=== PATIENT | female | born 1985 | race Caucasian/White ===

== ENCOUNTER → 2019-09-09 09:44 | Outpatient (BNVA) | payer MEDICAID, SELFPAY | PROVIDERS: Family Provider Internal Medicine; PCP Internal Medicine; Visit Provider Social Worker Clinical | DX: F20.9 Schizophrenia, unspecified (principal); F43.12 Post-traumatic stress disorder, chronic; F41.1 Generalized anxiety disorder | CPT/HCPCS: 90834 ==

== ENCOUNTER → 2019-09-30 08:42 | Outpatient (BNVA) | payer MEDICAID, SELFPAY | PROVIDERS: Family Provider Internal Medicine; PCP Internal Medicine; Visit Provider Social Worker Clinical | DX: F20.9 Schizophrenia, unspecified (principal); F43.12 Post-traumatic stress disorder, chronic; F41.1 Generalized anxiety disorder | CPT/HCPCS: 90834 ==

== ENCOUNTER → 2019-10-05 15:13 | Outpatient (BNVA) | payer MEDICAID, SELFPAY | PROVIDERS: Family Provider Internal Medicine; PCP Internal Medicine; Visit Provider Social Worker Clinical | DX: F20.9 Schizophrenia, unspecified (principal); F43.12 Post-traumatic stress disorder, chronic; F41.1 Generalized anxiety disorder | CPT/HCPCS: 90834 ==

== ENCOUNTER 2019-10-13 17:39 | Inpatient (IN) | payer MEDICAID, SELFPAY ==
[2019-10-13 17:41] VITALS: BP 127/88; PULSE 92; RESP 18; TEMP 36.6; O2SAT 97; BMI 36.6
--- NOTE | 2019-10-13 17:48 | ED_ITS ---
Entered by Desean Rodriges, acting as scribe for Alicia Babin MD Oct 13, 2019 17:39 HPI - Psych General: Chief Complaint: Psychiatric Symptoms Stated Complaint: SI Time Seen by Provider: 10/13/19 17:54 History of Present Illness: HPI Narrative: 34 yo female presents with suicidal ideation. Pt states that she doesn't think that her medications are right. Pt states that she is shaking. Pt states that she has a history of hurting herself. MD complaint: suicidal ideation Duration: constant History of same: Yes Relieving factors: none Exacerbating factors: none Associated psychiatric symptoms: depression and suicidal ideation Associated symptoms: Reports depression Review of Systems Const: Denies: fever, chills, body aches or change in appetite Eyes: Denies: blurry vision or eye discomfort ENMT: Denies: throat pain or dental pain Card: Denies: chest pain Resp: Denies: shortness of breath GI: Denies: abdominal pain, nausea, vomiting or diarrhea : Denies: painful urination Musc: Denies: neck pain or back pain Skin/Breast: Denies: rash Neuro: Denies: headache Psych: Reports: depression Eduar/Lymph: Denies: easy bruising All/Imm: Denies: hives PFSH ED PFSH: Statuses (acute, chronic, etc) shown below reflect problem list status as previously entered and may not be historically accurate Medical History (Updated 10/13/19 @ 17:52 by Desean Rodriges) Schizophrenia Surgical History (Updated 09/29/19 @ 12:06 by Cyrus Jordan LPN) Hx of tonsillectomy Social History (Updated 10/07/19 @ 11:51 by Gloria Cordova LPN) Smoking and tobacco status: current every day smoker Alcohol intake: never Female Reproductive History: Date of last menstrual period: 09/29/19 Physical Exam Const: COMMON NORMALS: no apparent distress, oriented x3 and healthy appearing HENMT: COMMON NORMALS: normocephalic and head/scalp atraumatic HEAD & SCALP: normocephalic and atraumatic Eye: COMMON NORMALS: PERRL and EOMs intact bilaterally PUPIL: Yes PERRL Neck/C-Spine: COMMON NORMALS: full ROM and supple Chest: COMMONS NORMALS: inspection of chest normal and palpation of chest normal Resp: COMMON NORMALS: normal respiratory effort, no retractions, no use of accessory muscles and clear to auscultation bilaterally AUSCULTATION: clear to auscultation bilaterally Cardio: COMMON NORMALS: regular rate, regular rhythm and no murmurs RATE: regular rate RHYTHM: regular rhythm GI: COMMON NORMALS: normal to inspection, nondistended, normoactive bowel sounds, soft to palpation, non-tender and no masses PALPATION: Yes soft Extremity: COMMON NORMALS: normal to inspection and full ROM Neuro: COMMON NORMALS: oriented x3, moves all extremities and no focal motor deficits Psych: COMMON NORMALS: mental status grossly normal, thought process normal and cooperative THOUGHT PROCESS: normal thought process Skin: COMMON NORMALS: no rashes or lesions noted and no wounds GENERAL SKIN EXAM: no rashes or lesions noted MDM - Psych MDM Narrative: Medical decision making narrative: Patient presents here with suicidal ideations along with depression. Patient placed under 96-hour hold and medically cleared and will admit to the psychiatric unit. Patient has been stable while here. Lab Data: Labs: Lab Results 10/13/19 10/13/19 Range/Units 18:17 18:17 WBC 13.6 H (4.0-10.0) 10^3/ uL RBC 4.89 (4.1-5.3) 10^6/u L Hgb 14.1 (11.5-15.3) g/dL Hct 42.8 (37.0-47.0) % MCV 87.5 (81-99) fL MCH 28.8 (28.0-34.0) pg MCHC 32.9 (30.0-36.0) g/dL RDW 13.5 (12.1-15.1) % Plt Count 286 (130-400) 10^3/c mm MPV 10.7 H (7.4-10.4) fL Neut % (Auto) 64.4 % Lymph % (Auto) 28.7 % Camp % (Auto) 5.3 % Eos % (Auto) 1.0 % Baso % (Auto) 0.2 % Neut # (Auto) 8.8 H (1.8-7.7) 10^3/u L Lymph # (Auto) 3.9 (0.8-4.8) 10^3/u L Camp # (Auto) 0.7 (0.2-0.9) 10^3/u L Eos # (Auto) 0.1 (0.0-0.8) 10^3/u L Baso # (Auto) 0.0 (0.0-0.1) 10^3/u L Nucleated RBC % (a uto) 0 % Nucleated RBCs # 0.0 /100WBC Sodium 138 (136-145) mmol/L Potassium 3.4 L (3.5-5.1) mmol/L Chloride 105 (98-107) mmol/L Carbon Dioxide 20 L (22-29) mmol/L Anion Gap 16.4 (5-19) BUN 10 (6-20) mg/dL Creatinine 0.8 (0.5-0.9) mg/dL GFR Calculation 83.1 L (90-130) mL/min Glucose 118 H (65-115) mg/dL Calcium 9.9 (8.5-10.5) mg/dL Total Bilirubin 0.4 (0.15-1.2) mg/dL AST 16 (0-32) U/L ALT 17 (0-33) U/L Alkaline Phosphata se 168 H (35-105) IU/L Total Protein 7.2 (6.6-8.7) g/dL Albumin 4.5 (3.5-5.2) g/dL Globulin 2.7 (1.3-4.6) g/dL TSH 0.28 (0.27-4.20) uIU/ mL Salicylates 0.4 L (3-10) mg/dL Acetaminophen < 5.0 L (10-30) ug/mL Discharge Plan Discharge Prescriptions: No Action benztropine 0.5 mg tablet 0.5 mg PO BID RF: 0 clonazepam [Klonopin] 0.5 mg tablet 0.25 mg PO BID RF: 0 haloperidol 10 mg tablet 10 mg PO BID RF: 0 Linzess 145 mcg capsule 145 mcg PO QAM RF: 0 losartan 25 mg tablet 25 mg PO QDAY RF: 0 lovastatin 10 mg tablet 10 mg PO .HS RF: 0 omeprazole 20 mg capsule,delayed release(DR/EC) 20 mg PO BID RF: 0 zolpidem [Ambien] 10 mg tablet 10 mg PO ONCE RF: 0 mirtazapine [Remeron] 15 mg tablet 15 mg PO .HS Qty: 30 RF: 0 fluoxetine [Prozac] 40 mg capsule 40 mg PO QDAY Qty: 30 RF: 0 Coding Level of Care Code ED Public Safety Officer for Chg Fwd Exam Problem Focused The documentation recorded by the Antelmo cosby Kialy, accurately reflects the service I personally performed and the decisions made by , Alicia Babin MD Oct 13, 2019 17:39
[2019-10-13 18:07] VITALS: O2SAT 97
[2019-10-13 18:31] LABS: Basophils % 0.2 %; Eosinophils # 0.1 10^3/uL (0.0-0.8); Hematocrit 42.8 % (37.0-47.0); Hemoglobin 14.1 g/dL (11.5-15.3); Lymphocytes # 3.9 10^3/uL (0.8-4.8); Lymphocytes % 28.7 %; Mean Corpuscular HGB Conc 32.9 g/dL (30.0-36.0); Mean Corpuscular Hemoglobin 28.8 pg (28.0-34.0); Mean Corpuscular Volume 87.5 fL (81-99); Mean Platelet Volume 10.7 fL (7.4-10.4); Monocytes # 0.7 10^3/uL (0.2-0.9); Monocytes % 5.3 %; Neutrophils # 8.8 10^3/uL (1.8-7.7); Neutrophils % 64.4 %; Nucleated Red Blood Cells % 0 %; Platelet Count 286 10^3/cmm (130-400); Red Blood Count 4.89 10^6/uL (4.1-5.3); Red Cell Distribution Width 13.5 % (12.1-15.1); White Blood Count 13.6 10^3/uL (4.0-10.0)
[2019-10-13 18:59] LABS: Acetaminophen < 5.0 ug/mL (10-30); Alanine Aminotransferase 17 U/L (0-33); Albumin Level 4.5 g/dL (3.5-5.2); Alkaline Phosphatase 168 IU/L (35-105); Anion Gap 16.4 (5-19); Aspartate Amino Transferase 16 U/L (0-32); Blood Urea Nitrogen 10 mg/dL (6-20); Calcium 9.9 mg/dL (8.5-10.5); Carbon Dioxide 20 mmol/L (22-29); Chloride 105 mmol/L (98-107); Globulin 2.7 g/dL (1.3-4.6); Glomerular Filtration Rate 83.1 mL/min (90-130); Glucose 118 mg/dL (65-115); Potassium 3.4 mmol/L (3.5-5.1); Salicylate 0.4 mg/dL (3-10); Sodium 138 mmol/L (136-145); Thyroid Stimulating Hormone 0.28 uIU/mL (0.27-4.20); Total Bilirubin 0.4 mg/dL (0.15-1.2); Total Protein 7.2 g/dL (6.6-8.7)
[2019-10-13 19:19] LABS: Add Urine Microscopic? NO
[2019-10-13 19:27] LABS: Bilirubin Urine Neg (NEGATIVE); Blood Urine Neg (Negative); Glucose Urine UA Norm (Normal); HCG Qualitative Urine. Negative (Negative); Ketones Urine Negative (Negative); Leukocyte Esterase Urine Negative (Negative); Nitrate Urine Negative (Negative); Protein Urine Neg (Negative); Specific Gravity, Urine 1.005 (1.005-1.030); Urine Appearance Clear (CLEAR); Urine Color Yellow (Yellow); Urobilinogen Urine Norm (Negative); pH Urine 6 (5-7)
[2019-10-13 19:38] LABS: Alcohol Level < 10 mg/dL (0-10)
[2019-10-13 19:40] LABS: Amphetamines Screen Urine Negative (Negative); Barbiturates Screen Urine Negative (Negative); Benzodiazepines Screen Urine Negative (Negative); Cocaine Screen Urine Negative (Negative); Opiate Screen Urine Negative (Negative); PCP Screen Urine Negative (Negative); THC Screen Urine Negative (Negative)
[2019-10-13 20:30] VITALS: BP 143/89; PULSE 74; RESP 18; O2SAT 98
[2019-10-13 22:00] VITALS: BP 128/84; PULSE 76; RESP 21; TEMP 36.8; O2SAT 99
[2019-10-13] MEDS: haloperidol 5 mg Tablet 10 MG PO (22:53)
[2019-10-13] MEDS: mirtazapine 15 mg Tablet PO (22:54)
[2019-10-13] MEDS: atorvastatin 40 mg Tablet 20 MG PO (22:54)
[2019-10-14 06:00] VITALS: BP 102/68; PULSE 61; RESP 18; TEMP 36.8; O2SAT 95
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
[2019-10-14] MEDS: benztropine 1 mg Tablet 0.5 MG PO ×2 (08:32→17:36)
[2019-10-14] MEDS: CLONazepam 0.5 mg Tablet 0.25 MG PO ×2 (08:33→17:37)
[2019-10-14] MEDS: fluoxetine 20 mg Capsule 40 MG PO (08:34)
[2019-10-14] MEDS: haloperidol 5 mg Tablet 10 MG PO ×2 (08:34→21:11)
[2019-10-14] MEDS: losartan 50 mg Tablet 25 MG PO (08:35)
[2019-10-14] MEDS: pantoprazole DR 40 mg Tablet PO ×2 (08:35→17:37)
[2019-10-14] MEDS: acetaminophen 325 mg Tablet 650 MG PO (09:13)
[2019-10-14 13:06] VITALS: BP 96/62; PULSE 59; RESP 18; TEMP 36.7; O2SAT 96
[2019-10-14] MEDS: atorvastatin 40 mg Tablet 20 MG PO (21:11)
[2019-10-14] MEDS: mirtazapine 15 mg Tablet PO (21:12)
[2019-10-14 21:25] VITALS: BP 122/85; PULSE 63; RESP 17; TEMP 36.8; O2SAT 95
[2019-10-15 06:00] VITALS: BP 109/71; PULSE 54; RESP 18; TEMP 36.7; O2SAT 97
[2019-10-15] MEDS: fluoxetine 20 mg Capsule 40 MG PO (09:05)
[2019-10-15] MEDS: CLONazepam 0.5 mg Tablet 0.25 MG PO ×2 (09:05→17:30)
[2019-10-15] MEDS: pantoprazole DR 40 mg Tablet PO ×2 (09:05→17:29)
[2019-10-15] MEDS: benztropine 1 mg Tablet 0.5 MG PO ×2 (09:06→17:29)
[2019-10-15 09:08] VITALS: BP 114/83
[2019-10-15] MEDS: losartan 50 mg Tablet 25 MG PO (09:08)
--- NOTE | 2019-10-15 13:07 | PM.NPN ---
Subjective [facility] Subjective: Interval history: patient reports that she feels much better. She continues to hear a voice-like sounds in the background but is unable to detect with the voices are saying. She does not find distracting or frightening. She slept well after decrease of Haldol yesterday. Mental Status Exam MSE Comments: Mental Status Exam: Appearance: hygiene is good; no gross neurological deficits., gait is unremarkable; AIMS=0 Speech: Speech is of normal rate and rhythm and easily understood. Thought processes: Thought processes are abstract. Judgment is adequate for safety. Associations: intact Psychotic processes: There is no indication of guarding or paranoia. There is no attention to the internal stimuli. Auditory and visual hallucinations are denied. Judgment: Insight is fair. Problem solving skills are adequate for safety. Orientation: The patient is oriented to person, place time and situation. Memory: no deficits noted in immediate, intermediate, or remote spheres. Attention: The patient is alert and interpersonally engaged. Language: Verbalizations are coherent. Fund of knowledge: Fund of knowledge is adequate. Affect/Mood: Affect is consistent with a mildlydepressed mood. she denies suicidal ideation Affective range is appropriate. Psychosis: perception unimpaired except through cognitive distortion; reality testing intact. Cognition: Level of Consciousness: Awake, Alert, Appropriate and Follows Commands Patient Cognition Impaired: No Ability to Follow Directions: Excellent Patient Orientation (long list): Person, Place, Time, Name and Birthday Comprehension Ability: Understands Concepts Hallucination Type: None Delusion Description: Not Present Thought Process: Appropriate Affect: Affect Description: Calm and Flat Behavior: Patient Behavior: Cooperative Speech Pattern: Clear Vitals/I&O/Wt Last Vital Signs Temp 98.0 F 10/15/19 06:00 Pulse 54 L 10/15/19 06:00 Resp 18 10/15/19 06:00 BP 114/83 10/15/19 09:08 Pulse Ox 97 10/15/19 06:00 Weight last 48 hrs Weight 109.316 kg Data [facility] : 10/13/19 18:17 10/13/19 18:17 A&P Additional A&P Information assessment:major depression with psychotic features Due to the psychiatric conditions and treatment listed in the Assessment and Plan - the patient requires continued hospitalization. Will provide a safe and therapeutic environment for patient.. Will continue inpatient treatment to allow for medication adjustment and monitoring. Will continue q15 min safety checks. admission plan:Will continue current medications and monitor for medication side effects. Hospital day #3:Will decrease bedtime Haldol till 5 mg and stop daytime dosage only. Will provide a when necessary dose of 5 mg should auditory hallucinations recur. We will attempt to hold the dosage at this level and if she does well over the next 3 days and discharged to home. Monitor patient's mood, sleep, appetite, and behavior closely. Encourage patient to participate in individual and group therapeutic sessions on the fischer. Estimated length of stay 5 days The expected benefits and potential side effects of patient's psychiatric medications were discussed with the patient. The patient understands and consents to treatment. CRITERIA FOR DISCHARGE: stable on medications and no longer an imminent threat to self or others Involuntary Hold Information 96 Hour Hold: 96 Hour Hold Ending Date: 10/20/19 96 Hour Hold Ending Time: 19:09 Attestations [facility] Medical Necessity Statement*: patient will remain in the hospital for 3 more nights to stabilize her medications. Coding Level of Care Code Acute Group Therapy Counselor for Dragan Emanuel
[2019-10-15 14:00] VITALS: BP 105/75; PULSE 74; RESP 16; TEMP 36.7; O2SAT 98
[2019-10-15 20:07] VITALS: BP 107/78; PULSE 73; RESP 18; TEMP 36.6; O2SAT 97
[2019-10-15] MEDS: blistex lip oint 7 gm Tube 1 APPLIC TOPICAL (20:35)
[2019-10-15] MEDS: haloperidol 5 mg Tablet PO (20:35)
[2019-10-15] MEDS: atorvastatin 40 mg Tablet 20 MG PO (20:35)
[2019-10-15] MEDS: mirtazapine 15 mg Tablet PO (20:35)
[2019-10-16] MEDS: hyDROXYzine 25 mg Capsule 50 MG PO ×2 (00:23→19:01)
--- NOTE | 2019-10-16 00:27 | PC.NURSE ---
PRN VISTARIL PRN VISTARIL 50 MG PO ADMINISTERED FOR PT C/O ANXIETY. WILL CONTINUE TO MONITOR.
[2019-10-16 06:00] VITALS: BP 115/79; PULSE 58; RESP 18; TEMP 36.5; O2SAT 96
[2019-10-16] MEDS: CLONazepam 0.5 mg Tablet 0.25 MG PO ×2 (08:40→17:45)
[2019-10-16] MEDS: benztropine 1 mg Tablet 0.5 MG PO (08:40)
[2019-10-16] MEDS: fluoxetine 20 mg Capsule 40 MG PO (08:41)
[2019-10-16] MEDS: losartan 50 mg Tablet 25 MG PO (08:41)
[2019-10-16] MEDS: pantoprazole DR 40 mg Tablet PO ×2 (08:42→17:45)
[2019-10-16 11:35] VITALS: BP 120/81; PULSE 73
--- NOTE | 2019-10-16 12:17 | PM.NPN ---
Subjective [facility] Subjective: Interval history: pt reports that she is not sleeping well still. Wed iscussed side effects to medicaitons. She was having akathesia at higher doses of haloperidal but not now. No EPS. Mental Status Exam MSE Comments: Pt observed in the common area and interacting with peers in group therapy. Mental Status Exam: Appearance: hygiene is good; no gross neurological deficits., gait is unremarkable; AIMS=0 Speech: Speech is of normal rate and rhythm and easily understood. Thought processes: Thought processes are abstract. Judgment is adequate for safety. Associations: intact Psychotic processes: There is no indication of guarding or paranoia. There is no attention to the internal stimuli. Auditory and visual hallucinations are denied. Judgment: Insight is fair. Problem solving skills are adequate for safety. Orientation: The patient is oriented to person, place time and situation. Memory: no deficits noted in immediate, intermediate, or remote spheres. Attention: The patient is alert and interpersonally engaged. Language: Verbalizations are coherent. Fund of knowledge: Fund of knowledge is adequate. Affect/Mood: Affect is consistent with a euthymic mood. she denies suicidal ideation Affective range is appropriate. Psychosis: perception unimpaired except through cognitive distortion; reality testing intact. Cognition: Patient Appearance: Appropriate Level of Consciousness: Awake, Alert, Appropriate and Follows Commands Patient Cognition Impaired: No Ability to Follow Directions: Excellent Patient Orientation (long list): Person, Place, Time, Name and Birthday Comprehension Ability: Understands Concepts Hallucination Type: None Delusion Description: Not Present Thought Process: Appropriate Affect: Affect Description: Appropriate and Calm Behavior: Patient Behavior: Appropriate Speech Pattern: Appropriate Vitals/I&O/Wt Last Vital Signs Temp 97.7 F 10/16/19 06:00 Pulse 73 10/16/19 11:35 Resp 18 10/16/19 06:00 BP 120/81 10/16/19 11:35 Pulse Ox 96 10/16/19 06:00 Data NPU : 10/13/19 18:17 10/13/19 18:17 A&P Additional A&P Information assessment:major depression with psychotic features Due to the psychiatric conditions and treatment listed in the Assessment and Plan - the patient requires continued hospitalization. Will provide a safe and therapeutic environment for patient.. Will continue inpatient treatment to allow for medication adjustment and monitoring. Will continue q15 min safety checks. admission plan:Will continue current medications and monitor for medication side effects. Hospital day #3:Will decrease bedtime Haldol till 5 mg and stop daytime dosage only. Will provide a when necessary dose of 5 mg should auditory hallucinations recur. We will attempt to hold the dosage at this level and if she does well over the next 3 days and discharged to home. Hospital Day #4: stop cogentin. Stop fluoxetine. Start imipramine 50 mg at bedtime for sleep that will become a prn dose on discharge Monitor patient's mood, sleep, appetite, and behavior closely. Encourage patient to participate in individual and group therapeutic sessions on the fischer. Estimated length of stay 5 days The expected benefits and potential side effects of patient's psychiatric medications were discussed with the patient. The patient understands and consents to treatment. CRITERIA FOR DISCHARGE: stable on medications and no longer an imminent threat to self or others Involuntary Hold Information 96 Hour Hold: 96 Hour Hold Ending Date: 10/20/19 96 Hour Hold Ending Time: 19:09 Attestations [facility] Medical Necessity Statement*: Pt will remain in the hospital 1-2 more nights so that we can assess sleep response. Coding Level of Care Code Acute Vc++ Developer for Dragan Emanuel
[2019-10-16] MEDS: blistex lip oint 7 gm Tube 1 APPLIC TOPICAL (16:16)
[2019-10-16 20:59] VITALS: BP 116/77; PULSE 63; RESP 18; TEMP 36.7; O2SAT 98
[2019-10-16] MEDS: mirtazapine 15 mg Tablet PO (21:12)
[2019-10-16] MEDS: atorvastatin 40 mg Tablet 20 MG PO (21:12)
[2019-10-16] MEDS: haloperidol 5 mg Tablet PO (21:12)
[2019-10-17 06:00] VITALS: BP 135/99; PULSE 77; RESP 20; TEMP 36.7; O2SAT 98
[2019-10-17] MEDS: losartan 50 mg Tablet 25 MG PO (08:52)
[2019-10-17] MEDS: CLONazepam 0.5 mg Tablet 0.25 MG PO (08:53)
[2019-10-17] MEDS: pantoprazole DR 40 mg Tablet PO (08:53)
--- NOTE | 2019-10-17 09:27 | P.DS_ITS ---
Reason for Visit Reason for Visit: Reason For Visit: SI;96 hour hold Hospital Course Discharge Summary Date of Admission: 10/13/2019 Date of Discharge: 10/17/2019 Chief complaint: I think my medications aren't working and I need to change. History of present illness:Blanche Cavanaugh is a 34 year old female who states that yesterday she became irritable at work. She was snapping at everybody and felt like hurting people. I got to work, I began shaking and having bad thoughts. She came to the emergency room at the behest of her family. She is not a reliable informant. She cannot convert the names of medications that she is taking. Her description of her recent history is not supported by information in the medical record. She reports that she engages in no enjoyable activities. There is nothing that she is looking forward to. She has variable sleep. Most recently, her Ambien was replaced with Remeron. However she cannot remember the history of her other medications. She was seeing Dr. Olvera that she said she saw once last month. That is not supported in the medical record. However would explain why her risperidone, which she was taking June was switched to Haldol 10 mg twice a day. She does not associate her increased irritability with the change in the medication. At the time of interview, she was denying suicidal and homicidal ideation. She denied the presence of auditory or visual hallucinations. emergency room note:: HPI Narrative: 34 yo female presents with suicidal ideation. Pt states that she doesn't think that her medications are right. Pt states that she is shaking. Pt states that she has a history of hurting herself. 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 -Has had prior [facility] admissions to the [facility] in 2018 and 2017 in [place], currently not taking any psychiatric medications. Has been going to [facility] for therapy but has been noncompliant with medication management appointment. -Past medications: She reports Prozac caused increased depression, reports Latuda caused increased depression and increased from baseline hallucinations over time, reports Depakote was helpful but caused excessive weight gain, reports Abilify was helpful but has no means of paying for the medication, Haldol, Benadryl. Denies any prior Risperdal trial. 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 She is living with her father and stepmother. -She has lost custody of her 1-year-old who is in a custody of the state/ currently living with her [id number], has 2 other children that live with her family in [place] PAST MEDICAL HISTORY: -Acid reflux. Denies history of seizures. Surgeries: Right ankle fracture r epair, tubal ligation. Social history: Legal history:she was arrested in 2006 for second-degree tampering with an airplane or motorboat Diagnoses: major depression?recurrent, with psychotic features - reolved Adverse Reaction to Psychotropic medication. Assessment:it is confusing how she was changed from Risperdal to Haldol. The increase in dosage is significant and her complaints of being irritable and shaking might be explained by a switch. Akathisia with account for some of her irritability. plan at this time is to decrease her Haldol by half to 10 mg at bedtime only. We'll reassess her treatment for depression pending her response to these changes. :Will continue current medications and monitor for medication side effects. Hospital day #3:Will decrease bedtime Haldol till 5 mg and stop daytime dosage only. Will provide a when necessary dose of 5 mg should auditory hallucinations recur. We will attempt to hold the dosage at this level and if she does well over the next 3 days and discharged to home. Hospital Day #4: stop cogentin. Stop fluoxetine. Start imipramine 50 mg at bedtime for sleep that will become a prn dose on discharge Involuntary Hold Information 96 Hour Hold: 96 Hour Hold Ending Date: 10/20/19 96 Hour Hold Ending Time: 19:09 Mental Status Exam MSE Comments: Discharge Mental Status Exam: Appearance: hygiene is good; no gross neurological deficits., gait is unremarkable; AIMS=0 Speech: Speech is of normal rate and rhythm and easily understood. Thought processes: Thought processes are abstract. Judgment is adequate for safety. Associations: intact Psychotic processes: There is no indication of guarding or paranoia. There is no attention to the internal stimuli. Auditory and visual hallucinations are denied. Judgment: Insight is fair. Problem solving skills are adequate for safety. Orientation: The patient is oriented to person, place time and situation. Memory: no deficits noted in immediate, intermediate, or remote spheres. Attention: The patient is alert and interpersonally engaged. Language: Verbalizations are coherent. Fund of knowledge: Fund of knowledge is adequate. Affect/Mood: Affect is consistent with a euthymic mood. denied suicidal ideation Affective range is appropriate. Psychosis: perception unimpaired except through cognitive distortion; reality testing intact. Discharge Data Vitals: Last Vital Signs Temp 98.0 F 10/17/19 06:00 Pulse 77 10/17/19 06:00 Resp 20 H 10/17/19 06:00 BP 135/99 10/17/19 06:00 Pulse Ox 98 10/17/19 06:00 Discharge Plan Discharge Patient Disposition: Home, Self-Care Condition: Stable Prescriptions: New atorvastatin 40 mg Tablet 20 mg PO BEDTIME Qty: 30 RF: 4 haloperidol 5 mg Tablet 5 mg PO Q4H PRN (Reason: Agitation) Qty: 30 RF: 4 haloperidol 5 mg Tablet 5 mg PO BEDTIME Qty: 30 RF: 4 clonazepam 0.5 mg Tablet 0.25 mg PO BID Qty: 60 RF: 4 benztropine 1 mg Tablet 1 mg PO BID PRN (Reason: Mild Extrapyramidal symptoms) Qty: 60 RF: 4 imipramine HCl 25 mg Tablet 50 mg PO BEDTIME Qty: 30 RF: 4 Continued losartan 25 mg tablet 25 mg PO QDAY Qty: 30 RF: 4 omeprazole 20 mg capsule,delayed release(DR/EC) 20 mg PO BID Qty: 60 RF: 4 Remeron 15 mg tablet 15 mg PO .HS Qty: 30 RF: 4 Linzess 145 mcg capsule 290 mcg PO QAM Qty: 60 RF: 4 Discontinued benztropine 0.5 mg tablet 0.5 mg PO BID RF: 0 clonazepam [Klonopin] 0.5 mg tablet 0.5 mg PO BID RF: 0 haloperidol 10 mg tablet 10 mg PO BID RF: 0 lovastatin 10 mg tablet 20 mg PO .HS RF: 0 zolpidem [Ambien] 10 mg tablet 10 mg PO ONCE RF: 0 fluoxetine [Prozac] 40 mg capsule 40 mg PO QDAY Qty: 30 RF: 0 Discharge Orders: Discharge Order (Routine); Ordered 10/17/19 Ordered By: Palmer Malhotra Referrals: Blair Olvera MD [Physician] - 10/20/19 11:00 am Activity Restrictions/Additional Instructions: Do follow-up as scheduled with your current provider, Dr. Olvera and family independence case manager at [facility]. Be sure to contact your family independence case manager whenever you get out of hospital. Be sure to check on the status of your referral for a new individual therapist. [facility] ([facility]) [address] [facility], [address] [address] Discharge Attestations [facility] Time Spent in Discharge Care*: greater than 30 min Coding Level of Care Code Acute Advertising Account Manager for Dragan Emanuel
[2019-10-17 09:36] VITALS: BP 135/99; PULSE 77; TEMP 36.6; O2SAT 98
== END 2019-10-17 10:50 | disposition home or self-care (01) | DRG 885 ==
LOC: ER 17:54 → NP 19:58
PROVIDERS: Family Medicine; Emergency Provider Emergency Medicine; Family Provider Internal Medicine; PCP Internal Medicine
DX: F33.3 Major depressive disorder, recurrent, severe with psychotic symptoms (principal); R45.851 Suicidal ideations; F60.3 Borderline personality disorder; F41.9 Anxiety disorder, unspecified; F17.210 Nicotine dependence, cigarettes, uncomplicated
CPT/HCPCS: 12345; 36415; 80053; 80307; 81003; 81025; 84443; 85025; 99284

== ENCOUNTER 2019-10-13 17:39 | Emergency (ER) | payer MEDICAID, SELFPAY | END 2019-10-13 20:43 | disposition admitted as inpatient to this hospital (09) | LOC: ER 10-21 12:49 | PROVIDERS: Emergency Provider Emergency Medicine; Family Provider Internal Medicine; PCP Internal Medicine | DX: F32.9 Major depressive disorder, single episode, unspecified (principal); R45.851 Suicidal ideations; F20.9 Schizophrenia, unspecified; F60.3 Borderline personality disorder; F17.210 Nicotine dependence, cigarettes, uncomplicated | CPT/HCPCS: 36415; 80053; 80307; 81003; 81025; 84443; 85025; 99284; 99285 ==

== ENCOUNTER → 2019-10-20 10:38 | Outpatient (BNVA) | payer MEDICAID, SELFPAY | PROVIDERS: Family Provider Internal Medicine; PCP Internal Medicine; Visit Provider Psychiatry & Neurology Psychiatry | DX: F33.1 Major depressive disorder, recurrent, moderate (principal); F20.89 Other schizophrenia; F12.20 Cannabis dependence, uncomplicated; F10.20 Alcohol dependence, uncomplicated | CPT/HCPCS: 99213 ==

== ENCOUNTER → 2019-11-03 15:46 | Outpatient (BNVA) | payer MEDICAID, SELFPAY | PROVIDERS: Family Provider Internal Medicine; PCP Internal Medicine; Visit Provider Psychiatry & Neurology Psychiatry | DX: F20.89 Other schizophrenia (principal); F33.1 Major depressive disorder, recurrent, moderate; F10.20 Alcohol dependence, uncomplicated; F12.20 Cannabis dependence, uncomplicated | CPT/HCPCS: 99213 ==

== ENCOUNTER → 2019-11-10 13:00 | Outpatient (BNVA) | payer MEDICAID, SELFPAY | PROVIDERS: Family Provider Internal Medicine; PCP Internal Medicine; Visit Provider Psychiatry & Neurology Psychiatry | DX: F60.3 Borderline personality disorder (principal); F20.9 Schizophrenia, unspecified | CPT/HCPCS: 99213 ==

== ENCOUNTER 2019-11-19 19:26 | Emergency (ER) | payer MEDICAID, SELFPAY ==
--- NOTE | 2019-11-19 19:46 | PC.NURSE ---
no answer at triage at 194
--- NOTE | 2019-11-19 19:48 | PC.NURSE ---
no answer for triage at 194
--- NOTE | 2019-11-19 20:05 | PC.NURSE ---
Called for patient at 1999, no answer, charge nurse Stanley Cervantes RN and Dr. Walden notified
== END 2019-11-19 20:06 | disposition left against medical advice (07) ==
LOC: ER 20:08
PROVIDERS: Emergency Provider Physician Assistant; Family Provider Internal Medicine; PCP Internal Medicine
DX: Z53.21 Procedure and treatment not carried out due to patient leaving prior to being seen by health care provider (principal)
CPT/HCPCS: 99281

== ENCOUNTER → 2019-11-29 15:25 | Outpatient (BNVA) | payer MEDICAID, SELFPAY | PROVIDERS: Family Provider Internal Medicine; PCP Internal Medicine; Visit Provider Social Worker | DX: F20.9 Schizophrenia, unspecified (principal); F43.12 Post-traumatic stress disorder, chronic; F41.1 Generalized anxiety disorder | CPT/HCPCS: 90832 ==

== ENCOUNTER → 2019-12-06 09:09 | Outpatient (BNVA) | payer MEDICAID, SELFPAY | PROVIDERS: Family Provider Internal Medicine; PCP Internal Medicine; Visit Provider Psychiatry & Neurology Psychiatry | DX: F20.9 Schizophrenia, unspecified (principal); F60.3 Borderline personality disorder | CPT/HCPCS: 99214 ==

== ENCOUNTER 2019-12-06 14:01 | Emergency (ER) | payer MEDICAID, SELFPAY | END 2019-12-06 17:29 | disposition admitted as inpatient to this hospital (09) | LOC: ER 12-14 09:51 | PROVIDERS: Emergency Provider Family Medicine; Family Provider Internal Medicine; PCP Internal Medicine | DX: F20.9 Schizophrenia, unspecified (principal); F60.3 Borderline personality disorder; R45.851 Suicidal ideations; F17.210 Nicotine dependence, cigarettes, uncomplicated | CPT/HCPCS: 12345; 36415; 80053; 80306; 80307; 84703; 85025; 99282; 99285 ==

== ENCOUNTER 2019-12-06 14:01 | Inpatient (IN) | payer MEDICAID, SELFPAY ==
[2019-12-06 14:07] VITALS: BP 147/94; PULSE 113; RESP 18; TEMP 37.6; O2SAT 96; BMI 36.5
--- NOTE | 2019-12-06 14:11 | ED_ITS ---
HPI - Psych General: Stated Complaint: mhe Time Seen by Provider: 12/06/19 14:11 PFS ED PFSH: Surgical History (Updated 09/29/19 @ 12:06 by Cyrus Jordan LPN) Hx of tonsillectomy Social History (Updated 10/20/19 @ 11:10 by Cyrus Jordan LPN) Smoking and tobacco status: current every day smoker cigarettes Packs smoked per day: 1 Years cigarettes smoked: 9 Quit status (tobacco): has tried quititng Number of times tried to quit tobac co: 2 Second hand smoke exposure: Yes Smoking risk assessment/counseling performed?: Yes Tobacco counseling given: counseling >3 minutes Alcohol intake: never Female Reproductive History: Date of last menstrual period: 09/29/19 Discharge Plan Discharge Prescriptions: No Action clonazepam 0.5 mg tablet 0.25 mg PO BID Qty: 30 RF: 2 benztropine 1 mg tablet 1 mg PO BID Qty: 60 RF: 2 Remeron 15 mg tablet 15 mg PO .HS Qty: 30 RF: 2 duloxetine 30 mg capsule,delayed release(DR/EC) 30 mg PO DAILY Qty: 30 RF: 1 haloperidol 10 mg tablet 10 mg PO BID Qty: 60 RF: 0 atorvastatin 40 mg Tablet 20 mg PO BEDTIME Qty: 30 RF: 4 losartan 25 mg tablet 25 mg PO QDAY Qty: 30 RF: 4 omeprazole 20 mg capsule,delayed release(DR/EC) 20 mg PO BID Qty: 60 RF: 4 Linzess 145 mcg capsule 290 mcg PO QAM Qty: 60 RF: 4 Coding Level of Care Code ED Regional Marketing Director for Dragan Emanuel
--- NOTE | 2019-12-06 14:23 | ED_ITS ---
HPI - Psych General: Chief Complaint: Psychiatric Symptoms Stated Complaint: mhe Time Seen by Provider: 12/06/19 14:11 History of Present Illness: HPI Narrative: 34-year-old female presents emergency room with complaint of auditory hallucinations. States the voices she is hearing telling her to harm herself. She does have a psychiatric history has been hospitalized here in the [facility] before. has not had any recent medication changes. She states she has been taking her medications. She denies any recent illness. No bowel or bladder she has no respiratory issues. MD complaint: suicidal ideation and altered mental status Duration: constant History of same: Yes Relieving factors: none Exacerbating factors: none Associated psychiatric symptoms: suicidal ideation and auditory hallucinations Treatments prior to arrival: none If self harm: admits thoughts of self harm Review of Systems Const: Denies: fever, chills, body aches, change in appetite, fatigue or malaise ENMT: Denies: throat pain, ear pain, nasal discharge or nasal congestion Card: Denies: chest pain, edema, shortness of breath on exertion or shortness of breath when lying down Resp: Denies: shortness of breath, productive cough or non-productive cough GI: Reports: constipation; Denies: abdominal pain, nausea, vomiting, vomiting blood, coffee grounds in vomit, diarrhea, bloating, blood in stool or black tarry stool : Denies: flank pain, difficulty urinating, painful urination, urinary frequency or urinary urgency Skin/Breast: Denies: rash or itching [facility] ED PFSH: Surgical History (Updated 09/29/19 @ 12:06 by Cyrus Jordan LPN) Hx of tonsillectomy Social History (Updated 10/20/19 @ 11:10 by Cyrus Jordan LPN) Smoking and tobacco status: current every day smoker cigarettes Packs smoked pe r day: 1 Years cigarettes smoked: 9 Quit status (tobacco): has tried quititng Number of times tried to quit tobacco: 2 Second hand smoke exposure: Yes Smoking risk assessment/counseling performed?: Yes Tobacco counseling given: counseling >3 minutes Alcohol intake: never Female Reproductive History: Date of last menstrual period: 09/29/19 Physical Exam Const: COMMON NORMALS: no apparent distress GENERAL APPEARANCE: cooperative and comfortable ORIENTATION/CONSCIOUSNESS: Yes awake, Yes oriented to person, Yes oriented to place and Yes oriented to time HENMT: COMMON NORMALS: normocephalic, head/scalp atraumatic, hearing grossly normal bilaterally, external ears normal, EAC's normal, TM's normal bilaterally, nasal mucous membranes and turbinates normal, moist oral mucous membranes and oropharynx normal HEAD & SCALP: normocephalic and atraumatic NOSE: nasal mucous membranes and turbinates normal EXTERNAL EAR: Yes external ears normal EXTERNAL AUDITORY CANAL: EAC's normal TYMPANIC MEMBRANE: TM's normal bilaterally Eye: COMMON NORMALS: PERRL, EOMs intact bilaterally, conjunctivae normal and no scleral icterus CONJUNCTIVA: Yes conjunctivae normal PUPIL: Yes PERRL Neck/C-Spine: COMMON NORMALS: full ROM, no lymphadenopathy, supple and no JVD Lymph: LYMPHATIC: no lymphadenopathy noted and no lymphedema noted Resp: COMMON NORMALS: normal respiratory effort, no retractions, no use of accessory muscles and clear to auscultation bilaterally AUSCULTATION: clear to auscultation bilaterally Cardio: COMMON NORMALS: no JVD, regular rate, regular rhythm and no murmurs RATE: regular rate RHYTHM: regular rhythm GI: COMMON NORMALS: soft to palpation and no hepatosplenomegaly AUSCULTATION: Yes normoactive bowel sounds PALPATION: Yes soft, No tender, No guarding and Yes no hepatosplenomegaly Extremity: COMMON NORMALS: normal to inspection, normal capillary refill, no clubbing, cyanosis or edema, no calf tenderness and no pedal edema Neuro: SENSORIUM/ORIENTATION: Yes oriented to person, Yes oriented to place and Yes oriented to time Skin: COMMON NORMALS: no rashes or lesions noted GENERAL SKIN EXAM: no ra shes or lesions noted MDM - Psych MDM Narrative: Medical decision making narrative: Discussed Dr. Vasquez patient will be admitted to [facility] based on her suicidal ideation and plan. Lab Data: Labs: Lab Results 12/06/19 12/06/19 12/06/19 Range/Units 14:29 14:29 14:29 WBC 11.4 H (4.0-10.0) 10^3/ uL RBC 5.28 (4.1-5.3) 10^6/u L Hgb 15.1 (11.5-15.3) g/dL Hct 46.2 (37.0-47.0) % MCV 87.5 (81-99) fL MCH 28.6 (28.0-34.0) pg MCHC 32.7 (30.0-36.0) g/dL RDW 13.5 (12.1-15.1) % Plt Count 284 (130-400) 10^3/c mm MPV 10.4 (7.4-10.4) fL Neut % (Auto) 54.5 % Lymph % (Auto) 36.7 % [place] % (Auto) 7.0 % Eos % (Auto) 1.2 % Baso % (Auto) 0.3 % Neut # (Auto) 6.2 (1.8-7.7) 10^3/u L Lymph # (Auto) 4.2 (0.8-4.8) 10^3/u L [place] # (Auto) 0.8 (0.2-0.9) 10^3/u L Eos # (Auto) 0.1 (0.0-0.8) 10^3/u L Baso # (Auto) 0.0 (0.0-0.1) 10^3/u L Nucleated RBC % (a uto) 0 % Nucleated RBCs # 0.0 /100WBC Sodium 138 (136-145) mmol/L Potassium 3.8 (3.5-5.1) mmol/L Chloride 105 (98-107) mmol/L Carbon Dioxide 22 (22-29) mmol/L Anion Gap 14.8 (5-19) BUN 8 (6-20) mg/dL Creatinine 0.6 (0.5-0.9) mg/dL GFR Calculation 115.9 (90-130) mL/min Glucose 98 (65-115) mg/dL Calculated Osmolal ity 282 L (285-295) mOsm/k g Calcium 9.9 (8.5-10.5) mg/dL Total Bilirubin 0.3 (0.15-1.2) mg/dL AST 15 (0-32) U/L ALT 18 (0-33) U/L Alkaline Phosphata se 176 H (35-105) IU/L Total Protein 7.5 (6.6-8.7) g/dL Albumin 4.2 (3.5-5.2) g/dL Globulin 3.3 (1.3-4.6) g/dL HCG, Qual Negative (Negative) Salicylates < 0.3 L (3-10) mg/dL Urine Opiates Scre en (Negative) ng/mL Acetaminophen < 5.0 L (10-30) ug/mL Ur Barbiturates Sc reen (Negative) ng/mL Ur Phencyclidine S crn (Negative) ng/mL Ur Amphetamines Sc reen (Negative) ng/mL U Benzodiazepines Scrn (Negative) ng/mL Urine Cocaine Scre en (Negative) ng/mL U Marijuana (THC) Screen (Negative) ng/mL Ethyl Alcohol < 10 (0-10) mg/dL 12/06/19 Range/Units 14:50 WBC (4.0-10.0) 10^3/ uL RBC (4.1-5.3) 10^6/u L Hgb (11.5-15.3) g/dL Hct (37.0-47.0) % MCV (81-99) fL MCH (28.0-34.0) pg MCHC (30.0-36.0) g/dL RDW (12.1-15.1) % Plt Count (130-400) 10^3/c mm MPV (7.4-10.4) fL Neut % (Auto) % Lymph % (Auto) % [place] % (Auto) % Eos % (Auto) % Baso % (Auto) % Neut # (Auto) (1.8-7.7) 10^3/u L Lymph # (Auto) (0.8-4.8) 10^3/u L [place] # (Auto) (0.2-0.9) 10^3/u L Eos # (Auto) (0.0-0.8) 10^3/u L Baso # (Auto) (0.0-0.1) 10^3/u L Nucleated RBC % (a uto) % Nucleated RBCs # /100WBC Sodium (136-145) mmol/L Potassium (3.5-5.1) mmol/L Chloride (98-107) mmol/L Carbon Dioxide (22-29) mmol/L Anion Gap (5-19) BUN (6-20) mg/dL Creatinine (0.5-0.9) mg/dL GFR Calculation (90-130) mL/min Glucose (65-115) mg/dL Calculated Osmolal ity (285-295) mOsm/k g Calcium (8.5-10.5) mg/dL Total Bilirubin (0.15-1.2) mg/dL AST (0-32) U/L ALT (0-33) U/L Alkaline Phosphata se (35-105) IU/L Total Protein (6.6-8.7) g/dL Albumin (3.5-5.2) g/dL Globulin (1.3-4.6) g/dL HCG, Qual (Negative) Salicylates (3-10) mg/dL Urine Opiates Scre en Negative (Negative) ng/mL Acetaminophen (10-30) ug/mL Ur Barbiturates Sc reen Negative (Negative) ng/mL Ur Phencyclidine S crn Negative (Negative) ng/mL Ur Amphetamines Sc reen Negative (Negative) ng/mL U Benzodiazepines Scrn Negative (Negative) ng/mL Urine Cocaine Scre en Negative (Negative) ng/mL U Marijuana (THC) Screen Negative (Negative) ng/mL Ethyl Alcohol (0-10) mg/dL Discharge Plan Discharge Patient Disposition: Admitted As Inpatient Admit Provider: Willy Vasquez Clinical Impression: Suicidal ideation, Chronic schizophrenia, Borderline personality disorder Condition: Stable Interventions: ED Discharge Assessment Last Done: 12/06/19 17:28 Discharge Date/Time: 12/06/19 17:29 Coding Level of Care Code ED Vascular Surgeon for Dragan Fwdiana Exam Comprehensive
[2019-12-06 14:34] LABS: Basophils % 0.3 %; Eosinophils # 0.1 10^3/uL (0.0-0.8); Eosinophils % 1.2 %; Hematocrit 46.2 % (37.0-47.0); Hemoglobin 15.1 g/dL (11.5-15.3); Lymphocytes # 4.2 10^3/uL (0.8-4.8); Lymphocytes % 36.7 %; Mean Corpuscular HGB Conc 32.7 g/dL (30.0-36.0); Mean Corpuscular Hemoglobin 28.6 pg (28.0-34.0); Mean Corpuscular Volume 87.5 fL (81-99); Mean Platelet Volume 10.4 fL (7.4-10.4); Monocytes # 0.8 10^3/uL (0.2-0.9); Neutrophils # 6.2 10^3/uL (1.8-7.7); Neutrophils % 54.5 %; Nucleated Red Blood Cells % 0 %; Platelet Count 284 10^3/cmm (130-400); Red Blood Count 5.28 10^6/uL (4.1-5.3); Red Cell Distribution Width 13.5 % (12.1-15.1); White Blood Count 11.4 10^3/uL (4.0-10.0)
[2019-12-06 14:47] LABS: Alanine Aminotransferase 18 U/L (0-33); Albumin Level 4.2 g/dL (3.5-5.2); Alkaline Phosphatase 176 IU/L (35-105); Anion Gap 14.8 (5-19); Aspartate Amino Transferase 15 U/L (0-32); Blood Urea Nitrogen 8 mg/dL (6-20); Calcium 9.9 mg/dL (8.5-10.5); Carbon Dioxide 22 mmol/L (22-29); Chloride 105 mmol/L (98-107); Globulin 3.3 g/dL (1.3-4.6); Glomerular Filtration Rate 115.9 mL/min (90-130); Glucose 98 mg/dL (65-115); HCG, Serum Qual Negative (Negative); Osmolality Calculated 282 mOsm/kg (285-295); Potassium 3.8 mmol/L (3.5-5.1); Sodium 138 mmol/L (136-145); Total Bilirubin 0.3 mg/dL (0.15-1.2); Total Protein 7.5 g/dL (6.6-8.7)
[2019-12-06 14:54] LABS: Acetaminophen < 5.0 ug/mL (10-30); Salicylate < 0.3 mg/dL (3-10)
[2019-12-06 14:55] LABS: Alcohol Level < 10 mg/dL (0-10)
[2019-12-06 15:13] LABS: Amphetamines Screen Urine Negative (Negative); Barbiturates Screen Urine Negative (Negative); Benzodiazepines Screen Urine Negative (Negative); Cocaine Screen Urine Negative (Negative); Opiate Screen Urine Negative (Negative); PCP Screen Urine Negative (Negative); THC Screen Urine Negative (Negative)
[2019-12-06 16:19] VITALS: BP 133/90; PULSE 95; RESP 18; TEMP 36.8; O2SAT 97
[2019-12-06 18:30] VITALS: BP 133/95; PULSE 99; RESP 18; TEMP 37.1; O2SAT 97
--- NOTE | 2019-12-06 21:13 | PC.NURSE ---
pt offered pain and/or sleep meds at this time, pt refused.
[2019-12-06 22:00] VITALS: BP 101/66; PULSE 81; RESP 20; TEMP 36.6; O2SAT 97
[2019-12-07 06:00] VITALS: BP 106/73; PULSE 71; RESP 17; TEMP 36.8; O2SAT 96
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
[2019-12-07 14:00] VITALS: BP 121/85; PULSE 87; RESP 18; TEMP 36.5; O2SAT 95
[2019-12-07] MEDS: duloxetine 60 mg Capsule PO (15:24)
[2019-12-07] MEDS: methocarbamol 750 mg Tablet PO (15:57)
[2019-12-07] MEDS: benztropine 1 mg Tablet PO (17:49)
[2019-12-07] MEDS: CLONazepam 0.5 mg Tablet 0.25 MG PO (17:49)
[2019-12-07] MEDS: haloperidol 5 mg Tablet 10 MG PO (17:49)
[2019-12-07] MEDS: mirtazapine 15 mg Tablet PO (20:21)
[2019-12-07] MEDS: atorvastatin 40 mg Tablet 20 MG PO (20:21)
[2019-12-07] MEDS: prazosin 1 mg Capsule PO (20:22)
[2019-12-07] MEDS: hyDROXYzine 25 mg Capsule 50 MG PO (20:22)
--- NOTE | 2019-12-07 20:23 | PC.NURSE ---
pt given scheduled lipitor, tofranil, remeron, minipress and prn visteril.
[2019-12-07 20:50] VITALS: BP 97/61; PULSE 81; RESP 18; TEMP 36.6; O2SAT 94
[2019-12-07] MEDS: acetaminophen 325 mg Tablet 650 MG PO (21:25)
--- NOTE | 2019-12-07 21:27 | PC.NURSE ---
tylenol given at this time per request for tooth pain.
[2019-12-08 06:00] VITALS: BP 108/69; PULSE 74; RESP 18; TEMP 36.6; O2SAT 93
[2019-12-08 08:30] VITALS: BP 108/69
[2019-12-08] MEDS: duloxetine 30 mg Capsule PO (08:30)
[2019-12-08] MEDS: losartan 50 mg Tablet 25 MG PO (08:30)
[2019-12-08] MEDS: pantoprazole DR 40 mg Tablet PO (08:30)
[2019-12-08] MEDS: benztropine 1 mg Tablet PO ×2 (08:30→17:59)
[2019-12-08] MEDS: duloxetine 60 mg Capsule PO (08:30)
[2019-12-08] MEDS: CLONazepam 0.5 mg Tablet 0.25 MG PO ×2 (08:30→17:59)
[2019-12-08] MEDS: haloperidol 5 mg Tablet 10 MG PO ×2 (08:30→17:59)
[2019-12-08] MEDS: methocarbamol 750 mg Tablet PO (09:48)
--- NOTE | 2019-12-08 09:49 | PC.NURSE ---
PRN ROBAXIN 750 MG GIVEN PO PER PT C/O MUSCLE SPASMS. WILL CONT TO MONITOR.
[2019-12-08 14:00] VITALS: BP 117/88; PULSE 99; RESP 18; TEMP 37.1; O2SAT 96
[2019-12-08] MEDS: acetaminophen 325 mg Tablet 650 MG PO (15:15)
--- NOTE | 2019-12-08 16:00 | P.PN_ITS ---
Subjective NPU Subjective: Interval history: Blanche presents today reporting that she has done really well on the medication. She feels significantly better and is really glad she came into the hospital. We began discussing her circumstance for being here and her expressing a desire to be discharged. We discussed wanting to see the medication for at least another day. We got her permission to reach out to family and spoke to her step mother and father about where they think things are. They report they think she has been really depressed and that she does have a person that comes out to the house to check her medications who is coming tomorrow. We discussed the risks, benefits, and alternatives of considering a discharge in the morning but certainly not today, to give her another day with the medication, and she understood and agreed to proceed as is documented in this note. This is an obese, white female, with adequate dress, grooming, and eye contact. No abnormal movements, except for mild psychomotor retardation. Cooperative with exam in no acute distress. Speech was decreased rate and volume, but slightly improved. Mood described as better; affect still subdued but improved. Thought process, organized. Thought content: patient denied any suicidal or homicidal ideation, there were no delusions reported or noted, patient denied any auditory or visual hallucinations. Attention, concentration, and memory appeared intact but were not formally tested. She is alert and oriented times three. Insight and judgment are improving. Mental Status Exam MSE Comments: This is an obese, white female, with adequate dress, grooming, and eye contact. No abnormal movements, except for mild psychomotor retardation. Cooperative with exam in no acute distress. Speech was decreased rate and volume, but slightly improved. Mood described as better; affect still subdued but improved. Thought process, organized. Thought content: patient denied any suicidal or homicidal ideation, there were no delusions reported or noted, patient denied any auditory or visual hallucinations. Attention, concentration, and memory appeared intact but were not formally tested. She is alert and oriented times three. Insight and judgment are improving. Vitals/I&O/Wt Last Vital Signs Temp 97.6 F 12/08/19 21:08 Pulse 100 12/08/19 21:08 Resp 18 12/08/19 21:08 BP 110/77 12/08/19 21:08 Pulse Ox 94 12/08/19 21:08 Data NPU : 12/06/19 14:29 12/06/19 14:29 A&P Additional A&P Information 1) Borderline personality disorder: (2) Suicidal ideation: (3) Acute stress disorder: (4) Bereavement: (5) Major depressive disorder: Additional A&P Information This is a 35 year old, single, white female, with a long history of mental health issues with most recent diagnosis being major depressive disorder, recurrent, severe, with psychotic features, who presents with acute stress reaction and bereavement, off of her medications, interested in getting things restarted. Continue current medication include restarting her home medications. Will increase Cymbalta to 20 mg bid. To assist with the nightmares, we will start Minipress at 1 mg po qhs. Encourage individual, group, and milieu therapy. Continue q 15-minute checks for safety Involuntary Hold Information 96 Hour Hold: 96 Hour Involuntary Admission: No 96 Hour Hold Ending Date: 10/20/19 96 Hour Hold Ending Time: 19:09 Attestations NPU Medical Necessity Statement*: Inpatient hospitalization is medically necessary and the clinically appropriate intervention at this time. We will monitor medications and titrate and adjust as indicated. Likely length of stay two to four days. Coding Level of Care Code Acute Buffet Attendant for Dragan Emanuel
[2019-12-08] MEDS: atorvastatin 40 mg Tablet 20 MG PO (20:31)
[2019-12-08] MEDS: prazosin 1 mg Capsule PO (20:32)
[2019-12-08] MEDS: mirtazapine 15 mg Tablet PO (20:32)
[2019-12-08 21:08] VITALS: BP 110/77; PULSE 100; RESP 18; TEMP 36.4; O2SAT 94
[2019-12-09 06:00] VITALS: BP 116/71; PULSE 65; RESP 17; TEMP 36.9; O2SAT 97
[2019-12-09] MEDS: haloperidol 5 mg Tablet 10 MG PO (08:25)
[2019-12-09] MEDS: duloxetine 30 mg Capsule PO (08:25)
[2019-12-09] MEDS: losartan 50 mg Tablet 25 MG PO (08:25)
[2019-12-09] MEDS: pantoprazole DR 40 mg Tablet PO (08:25)
[2019-12-09] MEDS: duloxetine 60 mg Capsule PO (08:25)
[2019-12-09] MEDS: benztropine 1 mg Tablet PO (08:25)
[2019-12-09] MEDS: CLONazepam 0.5 mg Tablet 0.25 MG PO (08:25)
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
[2019-12-09] MEDS: methocarbamol 750 mg Tablet PO (09:04)
--- NOTE | 2019-12-09 09:04 | PC.NURSE ---
PRN ROBAXIN 750 MG GIVEN PO PER PT C/O MUSCLE SPASMS. WILL CONT TO MONITOR.
[2019-12-09 09:08] VITALS: BP 116/71; PULSE 65; RESP 17; TEMP 36.9; O2SAT 97
== END 2019-12-09 09:41 | disposition home or self-care (01) | DRG 885 ==
LOC: ER 14:35 → NP 16:39
PROVIDERS: Physician Assistant; Admitting Provider Psychiatry & Neurology Psychiatry; Emergency Provider Family Medicine; Family Provider Internal Medicine; PCP Internal Medicine; Visit Provider Psychiatry & Neurology Psychiatry
DX: F33.2 Major depressive disorder, recurrent severe without psychotic features (principal); R45.851 Suicidal ideations; F60.3 Borderline personality disorder; F17.210 Nicotine dependence, cigarettes, uncomplicated; Z81.8 Family history of other mental and behavioral disorders; Z62.810 Personal history of physical and sexual abuse in childhood; Z62.819 Personal history of unspecified abuse in childhood; E66.9 Obesity, unspecified; Z68.36 Body mass index [BMI] 36.0-36.9, adult; Z63.4 Disappearance and death of family member; F43.0 Acute stress reaction
CPT/HCPCS: 12345; 36415; 80053; 80306; 80307; 84703; 85025; 99282

== ENCOUNTER → 2019-12-10 10:22 | Outpatient (BNVA) | payer MEDICAID, SELFPAY | PROVIDERS: Family Provider Internal Medicine; PCP Internal Medicine; Visit Provider Counselor Mental Health | DX: F32.9 Major depressive disorder, single episode, unspecified (principal); F60.3 Borderline personality disorder; F20.9 Schizophrenia, unspecified | CPT/HCPCS: 90832 ==

== ENCOUNTER → 2019-12-13 08:06 | Outpatient (BNVA) | payer MEDICAID, SELFPAY | PROVIDERS: Family Provider Internal Medicine; PCP Internal Medicine; Visit Provider Psychiatry & Neurology Psychiatry | DX: F32.9 Major depressive disorder, single episode, unspecified (principal); Z63.4 Disappearance and death of family member; F20.9 Schizophrenia, unspecified; F60.3 Borderline personality disorder | CPT/HCPCS: 99213 ==

== ENCOUNTER → 2019-12-17 13:00 | Outpatient (BNVA) | payer MEDICAID, SELFPAY | PROVIDERS: Family Provider Internal Medicine; PCP Internal Medicine; Visit Provider Counselor Mental Health | DX: F32.9 Major depressive disorder, single episode, unspecified (principal); F20.9 Schizophrenia, unspecified; F60.3 Borderline personality disorder | CPT/HCPCS: 90832 ==

== ENCOUNTER → 2019-12-24 08:36 | Outpatient (BNVA) | payer MEDICAID, SELFPAY | PROVIDERS: Family Provider Internal Medicine; PCP Internal Medicine; Visit Provider Counselor Mental Health | DX: F32.9 Major depressive disorder, single episode, unspecified (principal); F20.9 Schizophrenia, unspecified; F60.3 Borderline personality disorder | CPT/HCPCS: 90832 ==

== ENCOUNTER → 2019-12-27 08:25 | Outpatient (BNVA) | payer MEDICAID, SELFPAY | PROVIDERS: Family Provider Internal Medicine; PCP Internal Medicine; Visit Provider Psychiatry & Neurology Psychiatry | DX: F32.9 Major depressive disorder, single episode, unspecified (principal); F20.9 Schizophrenia, unspecified; F60.3 Borderline personality disorder | CPT/HCPCS: 99213 ==

== ENCOUNTER → 2019-12-30 09:01 | Outpatient (BNVA) | payer MEDICAID, SELFPAY | PROVIDERS: Family Provider Internal Medicine; PCP Internal Medicine; Visit Provider Counselor Mental Health | DX: F60.3 Borderline personality disorder (principal); F20.9 Schizophrenia, unspecified; F32.9 Major depressive disorder, single episode, unspecified | CPT/HCPCS: 90832 ==

== ENCOUNTER → 2020-01-10 08:23 | Outpatient (BNVA) | payer MEDICAID, SELFPAY | PROVIDERS: Family Provider Internal Medicine; PCP Internal Medicine; Visit Provider Psychiatry & Neurology Psychiatry | DX: F32.9 Major depressive disorder, single episode, unspecified (principal); F20.9 Schizophrenia, unspecified; F60.3 Borderline personality disorder; F43.12 Post-traumatic stress disorder, chronic | CPT/HCPCS: 99213 ==

== ENCOUNTER → 2020-01-13 09:14 | Outpatient (BNVA) | payer MEDICAID, SELFPAY | PROVIDERS: Family Provider Internal Medicine; Visit Provider Counselor Mental Health | DX: F32.9 Major depressive disorder, single episode, unspecified (principal); F20.9 Schizophrenia, unspecified; F60.3 Borderline personality disorder; F43.0 Acute stress reaction | CPT/HCPCS: 90832 ==

== ENCOUNTER → 2020-01-27 08:31 | Outpatient (BNVA) | payer MEDICAID, SELFPAY | PROVIDERS: Family Provider Internal Medicine; Visit Provider Psychiatry & Neurology Psychiatry | DX: F32.9 Major depressive disorder, single episode, unspecified (principal); F20.9 Schizophrenia, unspecified; F60.3 Borderline personality disorder; F43.0 Acute stress reaction; Z63.4 Disappearance and death of family member | CPT/HCPCS: 90834 ==

== ENCOUNTER → 2020-01-31 07:52 | Outpatient (BNVA) | payer MEDICAID, SELFPAY | PROVIDERS: Family Provider Internal Medicine; Visit Provider Psychiatry & Neurology Psychiatry | DX: F32.9 Major depressive disorder, single episode, unspecified (principal); F20.9 Schizophrenia, unspecified; F60.3 Borderline personality disorder | CPT/HCPCS: 99213 ==

== ENCOUNTER → 2020-02-03 09:19 | Outpatient (BNVA) | payer MEDICAID, SELFPAY | PROVIDERS: Family Provider Internal Medicine; Visit Provider Counselor Mental Health | DX: F32.9 Major depressive disorder, single episode, unspecified (principal); F20.9 Schizophrenia, unspecified; F60.3 Borderline personality disorder; F43.0 Acute stress reaction | CPT/HCPCS: 90832 ==

== ENCOUNTER → 2020-02-16 08:09 | Outpatient (BNVA) | payer MEDICAID, SELFPAY | PROVIDERS: Family Provider Internal Medicine; Visit Provider Counselor Mental Health | DX: F20.9 Schizophrenia, unspecified (principal); F60.3 Borderline personality disorder; F43.0 Acute stress reaction; F32.9 Major depressive disorder, single episode, unspecified | CPT/HCPCS: 90834 ==

== ENCOUNTER → 2020-02-22 08:18 | Outpatient (BNVA) | payer MEDICAID, SELFPAY | PROVIDERS: Family Provider Internal Medicine; Visit Provider Counselor Mental Health | DX: F32.9 Major depressive disorder, single episode, unspecified (principal); F20.9 Schizophrenia, unspecified; F60.3 Borderline personality disorder | CPT/HCPCS: 90832 ==

== ENCOUNTER 2020-02-25 12:19 | Outpatient (CLI) | payer MEDICAID, SELFPAY ==
--- NOTE | 2020-02-25 12:45 | US_ITS ---
WS: [id number] URINARY BLADDER ULTRASOUND HISTORY: BLADDER DYSFUNCTION COMPARISON: None available. Urinary bladder is overly distended. No intraluminal filling defect. No free fluid adjacent to the ur inary bladder. Bladder Wall Thickness: 0.2 cm. Bladder Prevoid: 11.4 cm x 10.2 cm x 11.0 cm. Prevoid volume: 664 ml. Bladder Postvoid: 9.3 cm x 9.3 cm x 9.6 cm. Postvoid volume: 435 ml. US/ bladder [id number] IMPRESSION: 1. [place] distended urinary bladder. 2. Significant post void residual. 3. No bladder mass.
== END 2020-02-25 12:20 | disposition home or self-care (01) ==
LOC: US 12:19
PROVIDERS: PCP Internal Medicine; Visit Provider Internal Medicine
DX: N31.9 Neuromuscular dysfunction of bladder, unspecified (principal)
CPT/HCPCS: 76857

== ENCOUNTER 2020-02-28 20:00 | Outpatient (CLI) | payer MEDICAID, SELFPAY | END 2020-02-28 20:01 | disposition home or self-care (01) | LOC: SLEEP 02-29 08:45 | PROVIDERS: PCP Internal Medicine; Visit Provider Internal Medicine | DX: G47.10 Hypersomnia, unspecified (principal) | CPT/HCPCS: 95810; 99213 ==

== ENCOUNTER → 2020-03-13 08:35 | Outpatient (BNVA) | payer MEDICAID, SELFPAY | PROVIDERS: PCP Internal Medicine; Visit Provider Counselor Mental Health | DX: F32.9 Major depressive disorder, single episode, unspecified (principal); F43.0 Acute stress reaction; F60.3 Borderline personality disorder; F20.9 Schizophrenia, unspecified | CPT/HCPCS: 90832 ==

== ENCOUNTER → 2020-03-27 08:15 | Outpatient (BNVA) | payer MEDICAID, SELFPAY | PROVIDERS: PCP Internal Medicine; Visit Provider Counselor Mental Health | DX: F32.9 Major depressive disorder, single episode, unspecified (principal); F20.9 Schizophrenia, unspecified; F60.3 Borderline personality disorder | CPT/HCPCS: 90832 ==

== ENCOUNTER → 2020-04-10 09:32 | Outpatient (BNVA) | payer MEDICAID, SELFPAY | PROVIDERS: PCP Internal Medicine; Visit Provider Psychiatry & Neurology Psychiatry | DX: F32.9 Major depressive disorder, single episode, unspecified (principal); F20.9 Schizophrenia, unspecified; F60.3 Borderline personality disorder | CPT/HCPCS: 99213 ==

== ENCOUNTER → 2020-04-11 09:07 | Outpatient (BNVA) | payer MEDICAID, SELFPAY | PROVIDERS: PCP Internal Medicine; Visit Provider Counselor Mental Health | DX: F32.9 Major depressive disorder, single episode, unspecified (principal); F20.9 Schizophrenia, unspecified; F60.3 Borderline personality disorder | CPT/HCPCS: 90832 ==

== ENCOUNTER → 2020-04-17 14:43 | Outpatient (BNVA) | payer MEDICAID, SELFPAY | PROVIDERS: PCP Internal Medicine; Referring Provider Internal Medicine; Visit Provider Nurse Practitioner Family | DX: R33.9 Retention of urine, unspecified (principal); R39.14 Feeling of incomplete bladder emptying; F17.210 Nicotine dependence, cigarettes, uncomplicated | CPT/HCPCS: 81001 ==

== ENCOUNTER 2020-04-21 13:14 | Outpatient (CLI) | payer MEDICAID, SELFPAY ==
--- NOTE | 2020-04-21 13:31 | XR_ITS ---
WS: [id number] EXAM: RIGHT KNEE: 3 VIEWS DATE OF EXAMINATION: 04/21/2020, 1346 hour COMPARISON: None. HISTORY: Patient is 34 years old with knee pain status post fall. FINDINGS: Bone density is normal in appearance. No definite fracture or dislocation is seen. Joint effusion is demonstrated in the suprapatellar pouch which is suggestive for possible internal derangement. Extra- articular soft tissues are otherwise unremarkable. XR/XR knee RT 3V* [id number] IMPRESSION: Joint effusion. No acute bone abnormality.
== END 2020-04-21 13:15 | disposition home or self-care (01) ==
PROVIDERS: PCP Internal Medicine; Visit Provider Internal Medicine
DX: M25.561 Pain in right knee (principal); W19.XXXA Unspecified fall, initial encounter; M25.461 Effusion, right knee
CPT/HCPCS: 73562

== ENCOUNTER → 2020-04-24 08:49 | Outpatient (BNVA) | payer MEDICAID, SELFPAY | PROVIDERS: PCP Internal Medicine; Visit Provider Counselor Mental Health | DX: F32.9 Major depressive disorder, single episode, unspecified (principal); F20.9 Schizophrenia, unspecified; F60.3 Borderline personality disorder | CPT/HCPCS: 90834 ==

== ENCOUNTER → 2020-05-15 08:49 | Outpatient (BNVA) | payer MEDICAID, SELFPAY | PROVIDERS: PCP Internal Medicine; Visit Provider Counselor Mental Health | DX: F33.1 Major depressive disorder, recurrent, moderate (principal); F60.3 Borderline personality disorder | CPT/HCPCS: 90832 ==

== ENCOUNTER → 2020-05-22 11:06 | Outpatient (BNVA) | payer MEDICAID, SELFPAY | PROVIDERS: PCP Internal Medicine; Visit Provider Counselor Mental Health | DX: F60.3 Borderline personality disorder (principal); F32.9 Major depressive disorder, single episode, unspecified; F20.9 Schizophrenia, unspecified | CPT/HCPCS: 90832 ==

== ENCOUNTER → 2020-05-29 09:37 | Outpatient (BNVA) | payer MEDICAID, SELFPAY | PROVIDERS: PCP Internal Medicine; Visit Provider Counselor Mental Health | DX: F32.9 Major depressive disorder, single episode, unspecified (principal); F60.3 Borderline personality disorder | CPT/HCPCS: 90834 ==

== ENCOUNTER → 2020-05-30 13:05 | Outpatient (BNVA) | payer MEDICAID, SELFPAY | PROVIDERS: PCP Internal Medicine; Visit Provider Urology | DX: R39.14 Feeling of incomplete bladder emptying (principal) | CPT/HCPCS: 81001 ==

== ENCOUNTER → 2020-06-13 08:37 | Outpatient (BNVA) | payer MEDICAID, SELFPAY | PROVIDERS: PCP Internal Medicine; Visit Provider Counselor Mental Health | DX: F33.1 Major depressive disorder, recurrent, moderate (principal); F20.9 Schizophrenia, unspecified; F60.3 Borderline personality disorder | CPT/HCPCS: 90832 ==

== ENCOUNTER → 2020-06-20 08:46 | Outpatient (BNVA) | payer MEDICAID, SELFPAY | PROVIDERS: PCP Internal Medicine; Visit Provider Counselor Mental Health | DX: F32.9 Major depressive disorder, single episode, unspecified (principal); F20.9 Schizophrenia, unspecified; F60.3 Borderline personality disorder | CPT/HCPCS: 90832 ==

== ENCOUNTER → 2020-07-10 08:27 | Outpatient (BNVA) | payer MEDICAID, SELFPAY | PROVIDERS: PCP Internal Medicine; Visit Provider Counselor Mental Health | DX: F20.9 Schizophrenia, unspecified (principal); F60.3 Borderline personality disorder | CPT/HCPCS: 90832 ==

== ENCOUNTER → 2020-07-19 08:35 | Outpatient (BNVA) | payer MEDICAID, SELFPAY | PROVIDERS: PCP Internal Medicine; Visit Provider Counselor Mental Health | DX: F32.9 Major depressive disorder, single episode, unspecified (principal); F20.9 Schizophrenia, unspecified; F60.3 Borderline personality disorder | CPT/HCPCS: 90834 ==

== ENCOUNTER 2020-08-08 11:01 | Outpatient (CLI) | payer MEDICAID, SELFPAY ==
--- NOTE | 2020-08-08 11:19 | XR_ITS ---
WS: [id number] RIGHT KNEE: 4 VIEW(S) TECHNIQUE: AP, oblique(s) and lateral. HISTORY: KNEE PAIN RIGHT COMPARISON: 04/21/2020 No fracture or dislocation. No joint space narrowing or osteophytes. Persistent joint effusion. No soft tissue abnormality. XR/XR knee RT 4V [id number] IMPRESSION: No fracture. Persistent joint effusion. MRI follow-up may be necessary for inte rnal derangement.
== END 2020-08-08 11:02 | disposition home or self-care (01) ==
PROVIDERS: PCP Internal Medicine; Visit Provider Nurse Practitioner Family
DX: M25.561 Pain in right knee (principal); M25.461 Effusion, right knee
CPT/HCPCS: 73564

== ENCOUNTER → 2020-08-10 07:48 | Outpatient (BNVA) | payer MEDICAID, SELFPAY | PROVIDERS: PCP Internal Medicine; Visit Provider Counselor Mental Health | DX: F32.9 Major depressive disorder, single episode, unspecified (principal); F20.9 Schizophrenia, unspecified; F60.3 Borderline personality disorder | CPT/HCPCS: 90832 ==

== ENCOUNTER → 2020-08-23 08:01 | Outpatient (BNVA) | payer MEDICAID, SELFPAY | PROVIDERS: PCP Internal Medicine; Visit Provider Counselor Mental Health | DX: F32.9 Major depressive disorder, single episode, unspecified (principal); F20.9 Schizophrenia, unspecified; F60.3 Borderline personality disorder | CPT/HCPCS: 90832 ==

== ENCOUNTER → 2020-09-22 08:05 | Outpatient (BNVA) | payer MEDICAID, SELFPAY | PROVIDERS: PCP Internal Medicine; Visit Provider Psychiatry & Neurology Psychiatry | DX: F32.9 Major depressive disorder, single episode, unspecified (principal); F20.9 Schizophrenia, unspecified; F60.3 Borderline personality disorder | CPT/HCPCS: 99214 ==

== ENCOUNTER → 2020-09-25 09:34 | Outpatient (BNVA) | payer MEDICAID, SELFPAY | PROVIDERS: PCP Internal Medicine; Visit Provider Psychiatry & Neurology Psychiatry | DX: F32.9 Major depressive disorder, single episode, unspecified (principal); F20.9 Schizophrenia, unspecified; F60.3 Borderline personality disorder | CPT/HCPCS: 80053; 85025 ==

== ENCOUNTER 2020-10-02 10:29 | Outpatient (CLI) | payer MEDICAID, SELFPAY ==
--- NOTE | 2020-10-02 10:38 | MR_ITS ---
WS: [id number] MRI RIGHT KNEE NONCONTRAST TECHNIQUE: Axial PD, coronal PD fat sat, coronal PD, sagittal PD, and sagittal PD fat-sat images obta ined. CLINICAL INFORMATION: KNEE PAIN, RIGHT COMPARISON: None. FINDINGS: Small suprapatellar effusion. Distal quadriceps and patella tendons are intact. Hypertrophic patella. Complete tear of the ACL. No normal fibers visualized. Normal PCL. Blunting of the posterior horn me dial meniscus with small horizontal tear extending to the articular surface. Hypertrophic patella. Moderate chondromalacia patella. No subchondral edema. Normal medial and latera l collateral ligaments. Normal popliteal fossa. Incidental enchondromas in the distal femoral shaft a nd proximal tibia. MR/MR knee RT wo con* [id number] IMPRESSION: 1. High-grade tear of the ACL. No normal fibers visualized. 2. Normal PCL. 3. Small horizontal tear involving the posterior horn medial meniscus extendin g to the articular surface with blunting of the posterior horn. 4. Moderate chondromalacia patella. Hypertrophic patella. 5. Small suprapatellar effusion.
== END 2020-10-02 10:30 | disposition home or self-care (01) ==
LOC: RADWPI 10:31
PROVIDERS: PCP Internal Medicine; Visit Provider Internal Medicine
DX: S83.511A Sprain of anterior cruciate ligament of right knee, initial encounter; S83.241A Other tear of medial meniscus, current injury, right knee, initial encounter; X58.XXXA Exposure to other specified factors, initial encounter; M22.41 Chondromalacia patellae, right knee; M25.461 Effusion, right knee
CPT/HCPCS: 73721

== ENCOUNTER 2020-10-10 14:32 | Outpatient (CLI) | payer MEDICAID, SELFPAY | END 2020-10-10 14:33 | disposition home or self-care (01) | LOC: SPT 14:33 | PROVIDERS: PCP Internal Medicine; Visit Provider Orthopaedic Surgery | DX: Z46.89 Encounter for fitting and adjustment of other specified devices (principal); S83.206D Unspecified tear of unspecified meniscus, current injury, right knee, subsequent encounter; S83.511D Sprain of anterior cruciate ligament of right knee, subsequent encounter; X58.XXXD Exposure to other specified factors, subsequent encounter | CPT/HCPCS: 97760; L1832 ==

== ENCOUNTER → 2020-10-27 09:03 | Outpatient (BNVA) | payer MEDICAID, SELFPAY | PROVIDERS: PCP Internal Medicine; Visit Provider Counselor Mental Health | DX: F33.0 Major depressive disorder, recurrent, mild (principal); F20.9 Schizophrenia, unspecified; F60.3 Borderline personality disorder | CPT/HCPCS: 90834; 87635 ==

== ENCOUNTER 2020-11-02 09:52 | Day surgery (SDC) | payer MEDICAID, SELFPAY ==
[2020-11-01 14:51] VITALS: BMI 44.1
[2020-11-02] VITALS (10 sets, daily range): BP systolic 102–143; BP diastolic 67–103; PULSE 95–116; RESP 12–20; TEMP 36.1–36.6; O2SAT 92–97
[2020-11-02 10:18] LABS: OR HCG Qualitative Urine Negative (Negative)
[2020-11-02] MEDS: oxyCODONE 20 mg ER (12 HR) Tablet PO (10:26)
[2020-11-02] MEDS: acetaminophen 500 mg Tablet 1000 MG PO (10:27)
[2020-11-02] MEDS: sodium chloride 0.9% 1,000 ML 30 ML IV (10:33)
--- NOTE | 2020-11-02 10:41 | ANES.PREANE2 ---
Pre-Anesthetic Assessment Pre-Anesthetic Assessment: Height/Weight: Height 1.73 m Weight 131.542 kg Temp Pulse Resp BP Pulse Ox 97 F L 97 18 142/103 96 11/02/20 10:16 11/02/20 10:16 11/02/20 10:16 11/02/20 10:16 11/02/20 10:16 Preop Diagnosis: Anterior cruciate ligament tear, medial meniscal tear right knee Proposed Procedure: Operation Date: 11/02/20 11:30 Proposed Procedures p ACL Repair Reconstruction w/poss Medial Menisectomy repair 82805 S83.511A S83.206A(Right) - Reece Miller MD Familial anesthetic complications: None Was Beta Jeison taken within 24 hours: N/A Last intake: Intake Last Liquid Date 11/01/20 Last Liquid Time 18:00 Last Solid Date 11/01/20 Last Solid Time 18:00 Social: Social History: Tobacco and No alcohol Exam: Pre-Anes Outpt Exam: alert, oriented x 3, clear to auscultation bilaterally and regular rate & rhythm Airway: Cervical ROM: WNL MP: 3 Dentition: Other (missing) CV/HEM: CV/HEM: HTN GI: GI: GERD Metabolic: Metabolic: Hyperlipidemia and Morbid obesity Neuropsych: Neuropsych: Bipolar Anesthetic Plan: Anesthesia: General Risk of > 500 ml blood loss (7ml/kg in children): No Meds/Allergies Current Medications: Current Medications Generic Name Dose Route Start Last Admin Trade Name Freq PRN Reason Stop Dose Admin Sodium Chloride 1,000 mls @ 30 ml s/hr 11/02/20 10:15 11/02/20 10:33 Sodium Chloride 0.9% IV 11/03/20 10:14 30 mls/hr .Q24H [id number] Administration PFSH Anesthesia PFSH: Medical History Acute stress disorder Bereavement Chronic schizophrenia Feeling of incomplete bladder emptying Surgical History Hx of tonsillectomy Family History Other Diabetes Social History Smoking and tobacco status: current every day smoker cigarettes Packs smoked per day: 1 Years cigarettes smoked: 9 Quit status (tobacco): has tried quititng Number of times tried to quit tobacco: 2 Second hand smoke exposure: Yes Smoking risk assessment/counseling performed?: Yes Tobacco counseling given: counseling >3 minutes Alcohol intake: never Adopted: No Caregiver/support person: No Lives independently: Yes Marital status: Single Current occupational status: employed History of recent travel: No Female Reproductive History: Date of last menstrual period: 10/02/19 Data Anesthesia Other Labs: Laboratory Results - last 48 hr 11/02/20 10:06 Urine HCG, Qual Negative Cardiac Studies: No Data to Display
--- NOTE | 2020-11-02 10:59 | W.PM.OPSUD ---
Surgery/Procedure H&P Update DATE OF PROCEDURE: November 02, 2020 DATE H&P PERFORMED: 10/10/20 PREOP DIAGNOSIS: Anterior cruciate ligament tear, medial meniscal tear right knee PLANNED PROCEDURE: Operation Date: 11/02/20 11:30 Proposed Procedures p ACL Repair Reconstruction w/poss Medial Menisectomy repair 23458 S83.511A S83.206A(Right) - Reece Miller MD
[2020-11-02] MEDS: morphine 4 mg/mL SDV 1 mL 8 MG IM (11:38)
--- NOTE | 2020-11-02 13:40 | PM.OP ---
Operative Report Date of procedure: November 02, 2020 Pre-op Diagnosis: Anterior cruciate ligament tear, medial meniscal tear right knee Post-op diagnosis: same Post-op Findings: Same Procedure Done: Right anterior cruciate ligament reconstruction, right partial medial meniscus Pathology: none sent Anesthesia: General Estimated blood loss (mL): 50 Tourniquet time (min): 69 Findings: The patient had a complete tear of his anterior cruciate ligament. He had a complex tear involving the medial meniscus consistent with a large anterior displaced flap extending into the knee and a posterior flap extending into the notch. Tearing involves essentially the entirety of the medial meniscus posteriorly. Due to the complex tear pattern and chronicity she was not thought to be a candidate for repai Condition: stable Disposition: PACU Procedure: The patient was taken to the operating room given 2 g of Ancef. She was prepped and draped in the supine position with a tourniquet on the right thigh. The knee was initially entered through standard inferior medial and inferolateral portal. The bucket-handle portion of the medial meniscus was identified. Initially incisor shaver was used to debride the anterior based flap back to its base Turk was then inflated for additional hemostasis. The scope was then moved to the medial portal and working through the lateral portal anterior subluxation of the knee the posterior flap tear could be identified. Utilizing an incisor shaver and werewolf the posterior meniscal flap was debrided back. The rim was then cleaned up with the Jaeger [employer] Nephew Werewolf probe. After removal of the complex tearing portion of the meniscus approximately 90% of the posterior third of the meniscus was ultimately removed. The lateral compartment was inspected and found to be pristine. The patellofemoral compartment was inspected and feels only minimal central chondromalacia. Attention was then paid to the anterior cruciate ligament. Utilizing an incisor shaver small amount of lateral wall was resected allowing visualization of the posterior lateral intercondylar notch. A 3 cm long incision was then made over the medial tibial plateau and dissection carried down with blunt scissors identifying a well-defined semi-tendinosis and gracilis graft. The 2 grafts were freed off their insertion on the tibia and fixed with a Jaeger [employer] Nephew Ultrabraid suture. Using the closed ended tendon stripper to grafts were harvested. On the back table with her freed of muscle and the free ends fixed with the Ultrabraid suture. They were pretensioned on the back table. They were measured and fit snugly through a [] mm tunnel. Using the anatomic femoral footprint guide, a guidepin was driven up from the 10:30 position exiting superior and lateral femur. Tunnel depth was measured at 42 mm. The Endobutton reamer was passed over the guide pin confirming the length of tunnel. A 8 mm reamer was then passed to a depth of 30 mm. The Jaeger & Nephew ProTrac guide was used to pass a guidepin from the medial tibia exiting the tibial footprint. A 9 mm reamer was passed over the guidepin exiting at the tibial footprint.. On the back table, the 2 grafts were doubled through a 20 mm closed loop Endobutton. This allowed 22 mm of tendon to be buried in the femur and allowed more than sufficient room to flip the Endobutton. The grafts were shuttled from the tibia through the femur using an ultra braid suture. The Endobutton was felt to flip on the lateral cortex and secured with tension on the sutures to the tibia. A Jaeger [employer] Nephew Biosure Sync sleeve was placed and was secured with a 9 x 25 mm Biosure PK screw. Intraoperative images showed satisfactory position of the button. The knee and medial wounds were irrigated with saline. The sartorius fascia was closed with 2-0 Vicryl. Deep tissues were closed with 2-0 Vicryl. The tibial wound was closed with a running 3-0 Prolene. Portals were closed with 3-0 Prolene. Steri-Strips were applied over the tibial incision. Sterile dressings were applied. The patient was placed in a hinged knee brace locked in full extension. He was taken to recovery room in stable condition.
[2020-11-02] MEDS: oxyCODONE-APAP 5-325 mg Tablet 1 TAB PO (15:10)
--- NOTE | 2020-11-02 16:28 | ANE.PACU2 ---
Inpatient post-anesthesia follow up: Airway intact: Yes Vital signs: Temperature 97.8 F Pulse Rate 95 Respiratory Rate 16 Blood Pressure 135/81 Pulse Oximetry 96 Oxygen Delivery Me thod Room Air Oxygen Flow Rate 6 Fraction of Inspir ed Oxygen Hydration adequate: Yes Nausea and vomiting: No Pain level: 3
== END 2020-11-02 15:30 | disposition home or self-care (01) ==
PROVIDERS: PCP Internal Medicine; Visit Provider Orthopaedic Surgery
PROC: (CPT 27407; principal; 2020-11-02 11:30)
DX: S83.511A Sprain of anterior cruciate ligament of right knee, initial encounter (principal); S83.241A Other tear of medial meniscus, current injury, right knee, initial encounter; W01.0XXA Fall on same level from slipping, tripping and stumbling without subsequent striking against object, initial encounter; I10 Essential (primary) hypertension; K21.9 Gastro-esophageal reflux disease without esophagitis; E78.5 Hyperlipidemia, unspecified; E66.01 Morbid (severe) obesity due to excess calories; Z68.41 Body mass index [BMI] 40.0-44.9, adult; F17.210 Nicotine dependence, cigarettes, uncomplicated
CPT/HCPCS: 29881; 29888; 81025; 84703; C1713; J0690; J1580; J2270; J2704; J3010; J3490; J7030

== ENCOUNTER → 2020-11-03 08:12 | Outpatient (BNVA) | payer MEDICAID, SELFPAY | PROVIDERS: PCP Internal Medicine; Visit Provider Counselor Mental Health | DX: S83.206A Unspecified tear of unspecified meniscus, current injury, right knee, initial encounter (principal); S83.511A Sprain of anterior cruciate ligament of right knee, initial encounter; F32.9 Major depressive disorder, single episode, unspecified; F20.9 Schizophrenia, unspecified; F60.3 Borderline personality disorder | CPT/HCPCS: 90832 ==

== ENCOUNTER → 2020-11-13 08:27 | Outpatient (BNVA) | payer MEDICAID, SELFPAY | PROVIDERS: PCP Internal Medicine; Visit Provider Counselor Mental Health | DX: F32.9 Major depressive disorder, single episode, unspecified (principal); F20.9 Schizophrenia, unspecified; F60.3 Borderline personality disorder | CPT/HCPCS: 90834 ==

== ENCOUNTER → 2020-11-27 09:27 | Outpatient (BNVA) | payer MEDICAID, SELFPAY | PROVIDERS: PCP Internal Medicine; Visit Provider Counselor Mental Health | DX: F32.9 Major depressive disorder, single episode, unspecified (principal); F20.9 Schizophrenia, unspecified; F60.3 Borderline personality disorder | CPT/HCPCS: 90832 ==

== ENCOUNTER → 2020-12-06 08:49 | Outpatient (BNVA) | payer MEDICAID, SELFPAY | PROVIDERS: PCP Internal Medicine; Visit Provider Counselor Mental Health | DX: F32.9 Major depressive disorder, single episode, unspecified (principal); F20.9 Schizophrenia, unspecified; F60.3 Borderline personality disorder | CPT/HCPCS: 90834 ==

== ENCOUNTER → 2020-12-08 09:09 | Outpatient (BNVA) | payer MEDICAID, SELFPAY | PROVIDERS: PCP Internal Medicine; Visit Provider Psychiatry & Neurology Psychiatry | DX: F32.9 Major depressive disorder, single episode, unspecified (principal); F20.9 Schizophrenia, unspecified; F60.3 Borderline personality disorder | CPT/HCPCS: 99213 ==